=== PATIENT | female | born 1985 | race African-American/Black ===

== ENCOUNTER 2019-03-10 21:02 | Emergency (ER) | payer MEDICAID ==
[~2019-03-10] VITALS: Ht 175.3 cm; Wt 70.3 kg
[2019-03-10 21:22] VITALS: BP 117/77
[2019-03-10] MEDS ORDERED: IBUPROFEN600 MG ORAL (21:39)
--- NOTE | 2019-03-10 21:43 | Emergency Room Report ---
History of Present Illness General Chief Complaint: Lower Back Pain or Injury Source: Patient Present Illness HPI Disclaimer: Please note that this report is being documented using DRAGON technology. This can lead to erroneous entry secondary to incorrect interpretation by the dictating instrument. HPI: 33-year-old otherwise healthy female presents for evaluation of back pain. Patient was in a yoga class approximately 30 minutes ago laying on her back with her left leg flexed in a [id number] stretch with her left ankle on her right knee. She noticed a sudden pain in her lower back. There was no trauma. Denies any numbness or tingling. She noted some pain with ambulation and presented to the emergency department for evaluation. Has not taken any medications yet. No prior history of lower back trauma or surgery. She has strained her lower back before in yoga class several years ago. She currently denies any fevers, chills, radiating pain down the leg, numbness or tingling. She has not yet attempted to pass urine. Denies fecal incontinence. Is ambulating now without difficulty. PMH: Denies PSH: Denies Allergies: Denies Social Hx: Denies IV drug use, tobacco use or alcohol abuse Allergies: Coded Allergies: No Known Allergies (Unverified , 03/10/19) Patient History Last Menstrual Period: 03-08-2019 Now: No Nursing Documentation-PMH Past Medical History: No Stated History Review of Systems All Other Systems: negative except mentioned in HPI Physical Exam Vital Signs Date Time Temp Pulse Resp B/P (MAP) Pulse Ox O2 Delivery O2 Flow Rate FiO2 03/10/19 21:22 98.8 71 18 117/77 (90) 98 Room Air General: Awake and alert, no acute distress HEENT: NC/AT. EOMI. Resp: Normal work of breathing. Skin: Intact. No abrasions, laceration or rash over the exposed skin MSK: Normal tone and bulk. Moving all extremities. No obvious deformity. Ambulate without difficulty. Neuro: Awake and alert. Mentating appropriately. Sensation is intact to light touch over the dermatomes of the lower extremity bilaterally. Strength is 5/5 at the hips, knees and ankles. Back/Spine: No midline tenderness in the cervical, thoracic spine. There is some tenderness to palpation in the midline of the lumbosacral region without step-off or deformity. Mild paraspinal tenderness as well. Medical Decision Making Diagnostic Impression: Primary Impression: Low back pain ER Course This 33-year-old female presenting for evaluation of lower back pain with acute onset approximately 30 minutes prior to arrival while performing yoga moves. Differential includes was not limited to ligamentous strain, muscle spasm, disc herniation, radiculopathy. Very little concern for bony injury as there was no trauma and I do not believe she requires emergent imaging. She does not have any red flag symptoms of cauda equina or spinal epidural abscess. She has not yet taken any medication will provide ibuprofen in the emergency department and discharge the patient with ibuprofen for the next week. She can follow-up with her PMD and I have also included the number for the orthopedic urgent care. Discussed reasons to return to the emergency department. She understands and agrees with this treatment plan. Last Vital Signs Date Time Temp Pulse Resp B/P (MAP) Pulse Ox O2 Delivery O2 Flow Rate FiO2 03/10/19 21:22 98.8 71 18 117/77 98 Room Air Disposition: HOME, SELF-CARE Condition: Stable Scripts Ibuprofen* (MOTRIN*) 600 Mg Tablet 600 MG ORAL Q6HR PRN for For Pain, #30 TAB 0 Refills Prov: Mika Huerta MD 03/10/19 [facility]errals[facility] 24 hour /7 days a week by Appointment Only [address] [address] Patient Instructions: Lumbosacral Strain, Back Pain, Adult Additional Instructions: Please follow-up with your primary care doctor in the next 1 to 3 days to discuss this emergency department visit and for reevaluation of your back pain. He will be started on ibuprofen for control of pain and swelling to use every 6 hours for the next week. Continue with daily activity as tolerated but I would not recommend continuing yoga or any other strenuous exercise until you are return to your full health. Return to the emergency department if you have any inability to walk, sudden weakness, numbness or tingling, worsening pain that cannot be controlled at home or inability to pass urine. If you have any new or worsening symptoms please return to the emergency department for reevaluation. Mika Huerta MD Mar 10, 2019 21:43
[2019-03-10 21:47] VITALS: BP 124/72
== END 2019-03-10 21:46 | disposition home or self-care (01) ==
LOC: EMR 21:42
DX: M54.5 Low back pain (principal)
CPT/HCPCS: 99282